=== PATIENT | female | born 1930 | race Caucasian/White ===

== ENCOUNTER 2018-11-08 11:13 | Outpatient (CLI) | payer MEDICARE ==
--- NOTE | 2018-11-08 12:07 | RAD ---
TWO VIEWS LEFT TIBIA AND FIBULA: History: Non-healing wound. FINDINGS: AP and lateral views of the left tibia and fibula demonstrates some calcifications seen in the soft t issues, likely venous. The left tibia and fibula are unremarkable. No evidence of fractures, subluxations, or bony lesions s een. IMPRESSION: No evidence of acute left tibial or fibular fractures or bony lesions seen. POS: [facility]
== END 2018-11-08 11:14 | disposition home or self-care (01) ==
LOC: RAD-FRANK 11:13
PROVIDERS: ATTEND Nurse Practitioner Family
DX: S81.802A Unspecified open wound, left lower leg, initial encounter (principal)